=== PATIENT | female | born 1990 | race Caucasian/White ===

== ENCOUNTER 2016-12-20 23:20 | Emergency (ER) | payer BC ==
[2016-12-20 23:46] VITALS: BP 133/88
[2016-12-21 00:37] LABS: Hematocrit 39.4 % (37.0-47.0); Mean Cell Volume 89.7 fl (78-100); Mean Corpuscular Hemoglobin 29.6 pg (27-31); Neutrophil # 3.8 K/mm3 (1.3-6.0); Neutrophil % 53.4 % (42-75.0); Platelet Count 304 K/mm3 (150-450); Red Blood Count 4.39 M/mm3 (4.2-5.4); Red Cell Distribution Width 12.9 % (11.5-14.0)
[2016-12-21 00:46] LABS: Albumin * 3.8 gm/dl (3.4-5.0); Anion Gap 12.4 mmol/L (6.8-13.8); BUN/Creatinine Ratio 10.8 (9.0-21.6); Ca. Corrected For Albumin 9.2 mg/dL (8.4-10.2); Calcium * 9.4 mg/dL (7.9-10.9); Carbon Dioxide 29.2 mmol/L (24-32.6); Potassium 3.6 mmol/L (3.4-4.6); Total Protein 7.7 gm/dL (6.2-8.2)
--- NOTE | 2016-12-21 01:10 | ERNOTE ---
Abdominal HPI - Narrative Date of Service: 12/20/16 - General Chief Complaint: Abdominal Pain Time Seen by Provider: 12/20/16 23:37 Source: patient, RN notes reviewed Exam Limitations: no limitations - Immun/Allergies/Home Medications Immunizatons: IMMUNIZATION HX Immunizations Up to Date Yes History of Influenza Vaccine No Allergies/Adverse Reactions: Allergies No Known Allergies Allergy (Verified 12/20/16 23:42) - History of Present Illness Narrative: Has had lower abdominal, pelvic pain on and off for 2 years. 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 She denies any injury. The pain is in anterior, low, sharp and throbbing but only lasts 3 minutes. She took Tylenol without much relief. She has an appt with Dr. Islas Wednesday. Timing: intermittent Quality: moderate, sharpness, throbbing Activities at Onset: none Modifying Factors - (Worsens): Present: movement Associated Symptoms: Absent: headache, chest pain, fever/chills, nausea, vomiting Prior Abdominal Problems: Present: none Prior Treatment: Absent: recently seen Review of Systems - Review of Systems Constitutional: Present: no symptoms reported ENT: Present: no symptoms reported Respiratory: Present: no symptoms reported Cardiology: Present: no symptoms reported Musculoskeletal: Absent: muscle stiffness, neck pain, joint pain Skin: Present: rash - on hand Neurological: Present: no symptoms reported - Patient's Past Medical History Patient History - Medical: Anxiety, Migraines Patient History - Cardiac/Respiratory: Asthma, HEARTM Patient History - Cancer: No Hx of Cancer Patient History - Surgical Procedures: Ear Tubes, Tubal Ligation - Family History Mother Family History - Cardiac/Respiratory: COPD, CVA/Stroke Grandmother-Maternal Family History - Medical: Diabetes Type 2 Family History - Cardiac/Respiratory: COPD - Social History Living Situations: spouse Smoking Status: Never smoker Have you smoked in the past 12 months: No Do you dip or chew tobacco: No Alcohol Use: rarely Drug Use: none Physical Exam - Physical Exam General Appearance: Present: wd/wn, alert, no apparent distress Eye Exam: Normal inspection: bilateral, PERRL: bilateral Neck: Present: normal inspection, nontender Respiratory: Present: no respiratory distress, normal breath sounds, no accessory muscle use, lungs clear Cardiovascular/Chest: Present: regular rate, rhythm, no murmur Gastrointestinal/Abdominal: Present: normal bowel sounds, nondistended, soft, tenderness - suprapubic Back Exam: Present: normal inspection, no CVA tenderness, decreased range of motion Extremity Exam: Present: normal inspection, non-tender Neurological Exam: Present: alert, oriented Skin Exam: Present: normal color, warm/dry ED Progress - Results and Orders Patient's Lab Results:: I have reviewed the patient's lab results. - Vital Signs Patient's Vital Signs:: I have reviewed the patient's vital signs. Vital Signs: Vital Signs 12/20/16 23:21 Temperature 36.2 C L Pulse Rate 77 Respiratory 16 Rate Blood Pressure 133/88 - Progress/Reassessment Chief Complaint: Abdominal Pain Plan - Plan Plan: Home, Tylenol prn. f/u OB-lawn service manager. Departure - Departure Clinical Impression: Pelvic pain Disposition: Home self-care Condition: Good Instructions: Pelvic Pain, Female, [id number], Form - Excuse from Work, School, or Physical Activity Additional Instructions: Follow up with Dr. Islas as scheduled this afternoon. The Chlamydia results will take several days. Referrals: Braydon Gustafson DO [Primary Care Provider] -
[2016-12-21 03:00] LABS: Urine Bilirubin Negative (NEGATIVE); Urine Blood Negative /ul (NEGATIVE); Urine Ketone Negative (NEGATIVE); Urine Nitrite Negative (NEGATIVE); Urine Protein Negative (NEGATIVE); Urine Specific Gravity >=1.030 SP.GR. (1.005-1.010); Urine Urobilinogen Normal (NORMAL); Urine pH 5.5 pH (5.0-7.0)
[2016-12-21 03:30] LABS: Urine Amorphous Sediment Many - 3+ (NONE-FEW); Urine Appearance Cloudy; Urine Bacteria 1+; Urine Color Yellow; Urine RBC None Seen /hpf (0-5); Urine WBC None Seen /hpf (0-5)
== END 2016-12-21 02:28 | disposition home or self-care (01) ==
LOC: ER 23:20
DX: R10.2 Pelvic and perineal pain (principal)

== ENCOUNTER 2017-01-05 10:47 | Emergency (ER) | payer BC ==
[2017-01-05] MEDS ORDERED: ACETAMINOPHEN 325 MG TABLET PO ONE (11:30)
[2017-01-05] MEDS ORDERED: IBUPROFEN 600 MG TABLET PO ONE (11:30)
[2017-01-05] MEDS ORDERED: IBUPROFEN 600 MG TABLET ONE (11:48)
[2017-01-05] MEDS ORDERED: ACETAMINOPHEN 325 MG TABLET ONE (11:48)
--- NOTE | 2017-01-05 12:52 | ERNOTE ---
Date of Service: 01/05/17 Time Seen by Provider: 01/05/17 11:26 Stated Complaint: COUGH Presenting Symptoms:: cough Source: patient Exam Limitations: no limitations Immunizations: IMMUNIZATION HX Immunizations Up to Date Yes History of Influenza Vaccine No Allergies/Adverse Reactions: Allergies No Known Allergies Allergy (Verified 01/05/17 10:57) Home Medications: HOME MEDICATIONS Albuterol Sulfate [Proair Hfa] 2 puff IH Q4H PRN #1 inhaler 01/05/17 [Last Taken Unknown] Oseltamivir Phosphate [Tamiflu] 75 mg PO BID #10 cap 01/05/17 [Last Taken Unknown] - History of Present Ilness Narrative: Patient presents to the ED with cough and fever since yesterday. She relates cough, nasal congestion and full feeling ears. She has myalgias and fatigue. Minimal PIMENTEL with cough only. Has not seen anyone else for this. Nothign makes it better or worse. No rash. No abdominal pain. Mild ST. Timing: constant Severity: moderate Frequency/Possible Cause: Reports: no prior episodes Modifying Factors - Improves: Reports: nothing Modifying Factors - Worsens: Reports: nothing Associated Symptoms: Reports: cough, nasal congestion, sore throat, muscle aches , fever/chills. Denies: chest pain/soreness, shortness of breath Prior Treatment: Denies: recently seen Review of Systems - Review of Systems Constitutional: Present: fever EYE: Absent: eye discharge ENT: Present: See HPI Respiratory: Present: cough Cardiology: Absent: chest pain Gastrointestinal/Abdominal: Absent: abdominal pain Genitourinary: Present: no symptoms reported Skin: Absent: rash - Patient's Past Medical History Patient History - Medical: Anxiety, Migraines Patient History - Cardiac/Respiratory: No pertinent hx, Other Patient History - Cancer: No Hx of Cancer Patient History - Surgical Procedures: Ear Tubes, Tubal Ligation Patient History - Other: None LMP (females 10-50): other LMP (Calendar): 10/29/16 - Family History Mother Family History - Cardiac/Respiratory: COPD, CVA/Stroke Grandmother-Maternal Family History - Medical: Diabetes Type 2 Family History - Cardiac/Respiratory: COPD - Social History Living Situations: home Abuse History: No History of abuse Psych History: No pertinent hx Alcohol Use: rarely Drug Use: none - Immunizations Immunizations Up to Date: Yes History of Influenza Vaccine: No Physical Exam - Physical Exam General Appearance: Present: alert, no apparent distress, other - occasional cough. Speaks in full sentences. Alert, non-toxic, no distress. Well hydrated. Eye Exam: Normal inspection: bilateral, PERRL: bilateral Ears, Nose, Throat: Present: nasal congestion. Absent: abnormal TM (R), abnormal TM (L), pharyngeal erythema, pharyngeal swelling, tonsillar exudate, dry mucous membranes Neck: Present: normal inspection, supple Respiratory: Present: no respiratory distress, normal breath sounds, no accessory muscle use, lungs clear Cardiovascular/Chest: Present: regular rate, rhythm, no murmur, other - mild tachycardia but patient has a fever Gastrointestinal/Abdominal: Present: normal bowel sounds, nontender, soft. 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 - Vital Signs Patient's Vital Signs:: I have reviewed the patient's vital signs. Vital Signs: Vital Signs 01/05/17 01/05/17 01/05/17 10:53 10:58 12:18 Temperature 37.9 C H 38.6 C H Pulse Rate 114 H 112 H Respiratory 20 Rate Blood Pressure 125/81 O2 Sat by Pulse 99 Oximetry - Progress/Reassessment Chief Complaint: Upper Respiratory Symptoms Progress:: Unchanged Progress Note-Subjective: 01/05/17 12:46 Influenza A positive. Inhaler for cough, Tamiflu, in window for treatment. She is stable, non-toxic, non-hypoxic, no distress. I discussed warning signs and reasons to return as well as the need for close f/u. Departure - Departure Clinical Impression: Influenza A, Cough Disposition: Home self-care Instructions: Influenza, Adult, [id number] Additional Instructions: Tamiflu as directed. Rest. Fluids. Tylenol/Ibuprofen for fever. Return for shortness of breath or if your condition worsens or changes in any way. Referrals: Braydon Gustafson DO [Primary Care Provider] - Prescriptions: Albuterol Sulfate [Proair Hfa] 2 puff IH Q4H PRN #1 inhaler PRN Reason: Shortness Of Breath Oseltamivir Phosphate [Tamiflu] 75 mg PO BID #10 cap
[2017-01-05 13:38] VITALS: BP 116/62
== END 2017-01-05 12:52 | disposition home or self-care (01) ==
LOC: ER 10:47
DX: J10.1 Influenza due to other identified influenza virus with other respiratory manifestations (principal); R05 Cough

== ENCOUNTER 2017-09-15 18:15 | Emergency (ER) | payer BC ==
[2017-09-15 18:24] VITALS: BP 128/78
--- NOTE | 2017-09-15 18:43 | ERNOTE ---
Back Pain ER HPI Date of Service: 09/15/17 Time Seen by Provider: 09/15/17 18:35 Source: patient Exam Limitations: no limitations Immunizations: IMMUNIZATION HX Immunizations Up to Date Yes History of Influenza Vaccine No Allergies/Adverse Reactions: Allergies amoxicillin [From Augmentin] Adverse Reaction (Verified 09/15/17 18:24) clavulanic acid [From Augmentin] Adverse Reaction (Verified 09/15/17 18:24) Home Medications: HOME MEDICATIONS Cholecalciferol (Vitamin D3) [Vitamin D3] 1,000 unit PO DAILY 09/15/17 [Last Taken Unknown] Naproxen 500 mg PO BID PRN #20 tablet. 09/15/17 [Last Taken Unknown] Narrative: Patient states that she has had chronic back pain for some time today she felt more of the lumbar back pain in the mid line of her back. Denies any dysuria and she is not as she had a bilateral tubal ligation done. Review of Systems - Review of Systems Constitutional: Present: no symptoms reported EYE: Present: no symptoms reported ENT: Present: no symptoms reported Respiratory: Present: no symptoms reported Cardiology: Present: no symptoms reported Gastrointestinal/Abdominal: Present: no symptoms reported Genitourinary: Present: no symptoms reported Musculoskeletal: Present: See HPI - Patient's Past Medical History Patient History - Medical: Anxiety, Chronic Pain, Migraines Patient History - Cardiac/Respiratory: No pertinent hx, Other Patient History - Cancer: No Hx of Cancer Patient History - Surgical Procedures: Ear Tubes, Tubal Ligation Patient History - Other: None - Family History Mother Family History - Cardiac/Respiratory: COPD, CVA/Stroke Grandmother-Maternal Family History - Medical: Diabetes Type 2 Family History - Cardiac/Respiratory: COPD - Social History Living Situations: home Abuse History: No History of abuse Psych History: No pertinent hx Smoking Status: Former smoker Alcohol Use: occasionally Drug Use: none - Immunizations Immunizations Up to Date: Yes History of Influenza Vaccine: No Physical Exam - Physical Exam General Appearance: Present: wd/wn, alert, no apparent distress Head Exam: Present: normal inspection Respiratory: Present: no respiratory distress, normal breath sounds Cardiovascular/Chest: Present: regular rate, rhythm, no murmur Back Exam: Present: other - patient does have an exaggerated lordosis I don't see any lesions on her back just simply touching her back makes her scream I don 't see any reason for this. Patient has no spasm that I can feel Neurological Exam: Present: alert, oriented ED Progress - Vital Signs Patient's Vital Signs:: I have reviewed the patient's vital signs. Vital Signs: Vital Signs 09/15/17 18:19 Temperature 36.7 C Pulse Rate 85 Respiratory 18 Rate Blood Pressure 128/78 O2 Sat by Pulse 97 Oximetry - Progress/Reassessment Chief Complaint: Back Pain Plan - Plan Plan: Patient has chronic back pain she states that ibuprofen is not helping her we were switched to Naprosyn and give it a trial of Naprosyn. Departure Clinical Impression: Chronic back pain Qualifiers: Back pain location: low back pain Back pain laterality: midline Sciatica presence: without sciatica Qualified Code(s): M54.5 - Low back pain; G89.29 - Other chronic pain; G89.29 - Other chronic pain - Departure Disposition: Home self-care Condition: Good Instructions: Chronic Pain Referrals: Braydon Gustafson DO [Primary Care Provider] - Prescriptions: Naproxen 500 mg PO BID PRN #[address] tablet.[address] TURCIOS Reason: Pain
== END 2017-09-15 18:44 | disposition home or self-care (01) ==
LOC: ER 18:15
DX: M54.5 Low back pain (principal); G89.29 Other chronic pain; Z87.891 Personal history of nicotine dependence